=== PATIENT | female | born 1950 | race Caucasian/White ===

== ENCOUNTER → 2016-11-28 | Outpatient (CLI) | payer OTHER | LOC: RAD 10:22 | DX: J44.9 Chronic obstructive pulmonary disease, unspecified (principal); R06.00 Dyspnea, unspecified ==

== ENCOUNTER → 2016-12-26 | Outpatient (CLI) | payer OTHER ==
--- NOTE | ~2016-12-26 | CNG ---
[facility] [place] [address] CYTO-NONGYN REPORT PROCEDURE Name: RONICARITO Nicolasa Room #: REG [facility].#: [id number] Admission: 12/26/16 Date of : 46 Discharge: Report #: [id number] Path Case #: [id number] CYTOPATHOLOGY REPORT COLLECTION DATE: 12/26/2016 RECEIVED DATE: 12/27/2016 SUBMITTING PHYS: Dr. Raul Casillas OTHER PHYS: CLINICAL HISTORY: Not provided SPECIMEN(S) RECEIVED: A.Sputum * * * * * * * * * * * * FINAL DIAGNOSIS: A. Sputum: - No malignant cells identified. Pulmonary macrophages, rare bronchial epithelial cells, scattered squamous epithelial cells and abundant acute inflammatory cells are present. PATHOLOGIST: Nava Garcia M.D. REPORT ELECTRONICALLY SIGNED BY: Nava Garcia M.D. DATE/TIME: 12/28/2016 13:43 * * * * * * * * * * * * GROSS PATHOLOGY: A. Sputum: The specimen is submitted unfixed, labeled "Roni Carito". Received by the Cytology Department is less than one mL of cloudy colorless fluid. One ThinPrep slide was prepared. (mm 12.27.2016) DRAFTER MARINE(S): YEE Baron(ASCP) INITIAL CPT CODE(S): A; 55125 Professional services performed by [facility] at [address] , [place] [address] Technical services performed by [facility] at [address], [place] [address]. [facility] [address] [place] [address], [address] [place] [address] [facility] [address] [place] [address] CYTO-NONGYN REPORT PROCEDURE Name: CARITO LARSEN Room #: REG DELONTE Cruz.#: [id number] Admission: 12/26/16 Date of : 46 Discharge: Report #: [id number] Path Case #: [id number] PHONE: [phone] DIRECTOR: Douglas Damian M.D. * * * END OF REPORT * * *
== END ==
LOC: PUL 12:17
DX: R05 Cough (principal)

== ENCOUNTER → 2019-01-13 | Outpatient (CLI) | payer OTHER | LOC: RAD 13:11 | DX: J47.9 Bronchiectasis, uncomplicated (principal); J98.4 Other disorders of lung ==

== ENCOUNTER → 2021-01-19 | Outpatient (CLI) | payer OTHER | LOC: RAD 10:46 | PROVIDERS: ATTEND Pediatrics | DX: J44.9 Chronic obstructive pulmonary disease, unspecified (principal); R91.8 Other nonspecific abnormal finding of lung field; M41.84 Other forms of scoliosis, thoracic region ==